=== PATIENT | female | born 1940 | race Caucasian/White ===

== ENCOUNTER 2017-02-07 13:53 | Outpatient (CLI) | payer MEDICARE, OTHER ==
--- NOTE | 2017-02-07 16:00 | Mammography Report ---
DIGITAL DIAGNOSTIC BILATERAL MAMMOGRAM: 02/07/2017 CLINICAL INDICATION: A 76-year-old with personal history of right breast cancer, status post lumpecto my and chemoradiation, palpable abnormality in her left breast. TECHNIQUE: Bilateral CC and MLO views, left true lateral view. A marker was placed at the site of pal pable abnormality identified by the patient. COMPARISON: 11/12/2015, 08/24/2014, 03/02/2014, 08/19/2013, 09/16/2012, 05/21/2012, 06/29/2011, 01/17, 06/29/2010, 12/28/2009, 10/25/2009. FINDINGS: The breasts again demonstrate scattered fibroglandular densities bilaterally. Postoperativ e and posttreatment changes in the right breast are stable. The palpable abnormality in the inner lef t breast again correlates with an oil cyst, stable from previous examinations. No new nodule, archite ctural distortion, or clustered microcalcifications are identified. IMPRESSION: BENIGN FINDINGS. RECOMMENDATION: ROUTINE ANNUAL SCREENING UNLESS OTHERWISE CLINICALLY INDICATED. BIRADS CATEGORY 2-BENIGN FINDINGS. STANDARD QUALIFYING STATEMENTS 1. This examination was reviewed with the aid of Computer-Aided Detection (CAD). 2. A negative or benign imaging report should not delay biopsy if clinically suspicious findings are present. Consider surgical consultation if warranted. More than 5% of cancers are not identified by oswaldo dial. 3. Dense breasts may obscure an underlying neoplasm. JOB #: [id number] EXT JOB #:[id number]
== END 2017-02-07 13:54 | disposition home or self-care (01) ==
LOC: DI 13:53
PROVIDERS: ATTEND Family Medicine
DX: N60.02 Solitary cyst of left breast (principal); Z85.3 Personal history of malignant neoplasm of breast
CPT/HCPCS: 77066

== ENCOUNTER 2017-11-22 09:33 | Outpatient (CLI) | payer MEDICARE, OTHER ==
[2017-11-22] MEDS ORDERED: REGADENOSON 0.4 MG/5 ML SYRINGE IVP ONE (10:29)
[2017-11-22] MEDS ORDERED: DIPYRIDAMOLE 50 MG/10 ML VIAL IVP ONE (11:00)
--- NOTE | 2017-11-22 15:46 | Nuclear Medicine Report ---
EXAM: SINGLE-ISOTOPE PHARMACOLOGICAL STRESS TEST WITH ADENOSINE. SINGLE-ISOTOPE AND SAME-DAY REST/STRESS MY OCARDIAL PERFUSION SCANS WITH TOMOGRAPHIC IMAGING, QUANTITATIVE ANALYSIS, WALL MOTION ANALYSIS AND CA LCULATION OF EJECTION FRACTION. EXAM DATE: 11/22/2017 02:41 PM. CLINICAL HISTORY: CHEST PAIN. COMPARISON: None. TECHNIQUE: Following the intravenous administration of 9.9 mCi of Tc-99m sestamibi, a rest myocardial perfusion scan was done with tomography. Motion correction was applied when appropriate. After a delay of several hours on the same day, a pharmacological stress was performed with the infus ion of 42 mg of dipyridamole. According to protocol, 39.8 mCi of Tc-99m sestamibi was injected for st ress myocardial perfusion scan. Stress myocardial perfusion was done with tomography without attenuat ion correction. Motion correction was applied when appropriate. Gated tomographic images were obtained for wall motion analysis and computation of left ventricular ejection fraction. FINDINGS: Perfusion images: Left ventricular chamber size is normal at rest and unchanged at stress. No convincing fixed perfusion deficits. No convincing reversible perfusion deficits. Gated images: No focal wall motion abnormality. The left ventricular ejection fraction is estimated at ADC% (normal > 50%). IMPRESSION: 1. No convincing reversible perfusion deficits to indicate stress-induced ischemia. 2. No convincing fixed perfusion deficits. 3. Left ventricular ejection fraction of 86% (normal > 50%). 4. No focal wall motion abnormalities. [facility] Referring Provider Line: [phone] SITE ID: [id number]
[2017-11-22 16:08] VITALS: BP 138/82
--- NOTE | 2017-11-22 19:53 | CARDIAC PROCEDURE NOTE ---
DATE OF SERVICE: 11/22/2017 Physician: SUYAPA Fernández PRIMARY CARE PHYSICIAN: Alphonse Ackerman MD. PROCEDURE: Pharmacologic cardiac stress test. PROCEDURE SYMPTOMS: Atypical chest pain. CARDIAC RISK FACTORS Include: 1. Age. 2. Diabetes. 3. Hypertension. PREVIOUS CARDIAC PROCEDURES: Adenosine pharmaceutical stress test on 07/22/2015 , with [address] depression. Significant symptoms from the adenosine itself. CLINICAL HISTORY: A 77-year-old female with asthma and COPD, and without known coronary artery disease. She does have a history of atrial tachycardia. She had no current symptoms. MEDICATIONS HELD: No medications held. No caffeine >24 hours. INITIAL RESTING VITAL SIGNS: BP 164/58, heart rate 81, height 61 inches, weight 155 pounds, BMI 31.43. PROCEDURE AND FINDINGS: Patient identity and date verified, consent signed. Pharmaceutical check. Blood pressure monitored at left wrist. Pharmaceutical stress testing was performed with Persantine 0.57 mg/kg over 4 minutes. The heart rate increased to 110 beats per minute from the infusion. Blood pressure response decreased to 138/82 during the stress procedure and then returned to baseline. The patient developed moderate infusion related symptoms, which included a tightness in the neck and head and left upper arm, which resolved partially spontaneous and partially with caffeine. The resting ECG demonstrated normal sinus rhythm with no ST segment or T-wave changes. A maximum ST-segment depression with stress was less than 0.5 mm and upsloping. There was no ectopy. The patient did not feel well for her repeat nuclear scan, complaining of feeling drowsy and having a headache. She had a snack and thus unlikely to have hypoglycemia. Recheck of VS and exam were normal. FINAL IMPRESSIONS 1. Negative electrocardiogram for ischemia in the setting of vasodilator stress. 2. Nondiagnostic stress test for angina. 3. Again, had prolonged symptoms of feeling slightly ill after procedure. 4. No ectopy. DISCUSSION AND RECOMMENDATIONS: Await myocardial perfusion report. TD: 11/22/2017 19:52 MTDD
== END 2017-11-22 09:34 | disposition home or self-care (01) ==
LOC: DI 09:33
PROVIDERS: ATTEND Family Medicine
DX: R07.89 Other chest pain (principal); E11.9 Type 2 diabetes mellitus without complications; I10 Essential (primary) hypertension; J44.9 Chronic obstructive pulmonary disease, unspecified
CPT/HCPCS: 78452; 93017; A9500; J1245; J2785; 93016; 93018

== ENCOUNTER 2018-05-03 12:51 | Outpatient (CLI) | payer MEDICARE, OTHER ==
--- NOTE | 2018-05-03 16:56 | Mammography Report ---
Reason: BREAST MASS, LEFT Procedure Date: 05/03/2018 Accession Number: [id number] / [id number] Procedure: [facility] - Diagnostic Dig Bilat CPT Code: FULL RESULT: EXAM: Diagnostic Dig Bilat DATE: 05/03/2018 1:54 PM CLINICAL HISTORY: 77-year-old female with personal history of breast cancer status post lumpectomy and chemoradiation to the right breast who presents with left breast pain for 4 to 5 months. TECHNIQUE: Bilateral CC and MLO views were obtained. COMPARISON: 02/07/2017, 11/12/2015, 08/24/2014, 03/02/2014 FINDINGS: The breasts demonstrate scattered fibroglandular densities bilaterally. Postsurgical and posttreatment changes are seen in the right breast. Typically benign coarse calcifications are seen in both breasts. No suspicious masses, clustered microcalcifications, or regions of architectural distortion are identified. There are no abnormal mammographic findings in the painful left breast. IMPRESSION: Benign findings RECOMMENDATION: Recommend routine annual Screening mammography unless otherwise clinically indicated. BIRADS CATEGORY 2: Benign findings STANDARD QUALIFYING STATEMENTS: 1. This examination was not reviewed with the aid of Computer-Aided Detection (CAD). 2. A negative or benign imaging report should not delay biopsy if clinically suspicious findings are present. Consider surgical consultation if warrented. More than 5% of cancers are not identified by imaging. 3. Dense breasts may obscure an underlying neoplasm.
== END 2018-05-03 12:52 | disposition home or self-care (01) ==
LOC: DI 12:51
PROVIDERS: ATTEND Family Medicine
DX: N63.20 Unspecified lump in the left breast, unspecified quadrant (principal); N64.4 Mastodynia
CPT/HCPCS: 77066

== ENCOUNTER 2018-12-06 08:00 | Outpatient (CLI) | payer MEDICARE, OTHER ==
[2018-12-06 18:23] LABS: BASOPHILS # (AUTO) 0.1 10^3/uL (0.0-0.1); BASOPHILS % (AUTO) 1.8 %; EOSINOPHILS # (AUTO) 0.2 10^3/uL (0.0-0.7); EOSINOPHILS % (AUTO) 2.9 %; HGB - HEMOGLOBIN 13.8 g/dL (12.0-16.0); LYMPHOCYTES # (AUTO) 1.8 10^3/uL (1.5-3.5); LYMPHOCYTES % (AUTO) 24.3 %; MEAN CORPUSCULAR HEMOGLOBIN 27.9 pg (27.0-31.0); MEAN CORPUSCULAR HGB CONC 32.3 g/dL (32.0-36.0); MEAN CORPUSCULAR VOLUME 86.2 fL (81.0-99.0); MEAN PLATELET VOLUME 8.7 fL (7.9-10.8); MONOCYTES # (AUTO) 0.7 10^3/uL (0.0-1.0); NEUTROPHILS # (AUTO) 4.5 10^3/uL (1.5-6.6); PLT - PLATELET COUNT 362 10^3/uL (130-450); RED BLOOD COUNT 4.97 10^6/uL (4.20-5.40); RED CELL DISTRIBUTION WIDTH 13.3 % (12.0-15.0); WHITE BLOOD COUNT 7.4 x10^3/uL (4.8-10.8)
== END 2018-12-06 23:59 | disposition home or self-care (01) ==
LOC: LAB.WCP 08:00
PROVIDERS: ATTEND Family Medicine
DX: I10 Essential (primary) hypertension (principal)
CPT/HCPCS: 36415; 85025

== ENCOUNTER 2020-07-11 11:58 | Outpatient (CLI) | payer MEDICARE, OTHER ==
[2020-07-11 12:31] LABS: BASOPHILS # (AUTO) 0.1 10^3/uL (0.0-0.1); BASOPHILS % (AUTO) 1.4 %; EOSINOPHILS # (AUTO) 0.3 10^3/uL (0.0-0.7); EOSINOPHILS % (AUTO) 2.6 %; HGB - HEMOGLOBIN 14.1 g/dL (12.0-16.0); LYMPHOCYTES # (AUTO) 2.4 10^3/uL (1.5-3.5); LYMPHOCYTES % (AUTO) 24.1 %; MEAN CORPUSCULAR HGB CONC 33.3 g/dL (32.0-36.0); MEAN CORPUSCULAR VOLUME 87.2 fL (81.0-99.0); MEAN PLATELET VOLUME 10.2 fL (7.9-10.8); MONOCYTES # (AUTO) 0.8 10^3/uL (0.0-1.0); NEUTROPHILS # (AUTO) 6.3 10^3/uL (1.5-6.6); NEUTROPHILS % (AUTO) 63.4 %; PLT - PLATELET COUNT 365 10^3/uL (130-450); RED BLOOD COUNT 4.86 10^6/uL (4.20-5.40); RED CELL DISTRIBUTION WIDTH 12.4 % (12.0-15.0); WHITE BLOOD COUNT 9.9 x10^3/uL (4.8-10.8)
[2020-07-11 12:54] LABS: ALBUMIN 4.5 g/dL (3.2-5.5); ALBUMIN/GLOBULIN RATIO 1.4 (1.0-2.2); ALKALINE PHOSPHATASE 61 IU/L (42-121); ALT ALANINE AMINOTRANSFERASE 24 IU/L (10-60); AST ASPARTATE AMINOTRANSFERASE 20 IU/L (10-42); BILIRUBIN,TOTAL 0.7 mg/dL (0.2-1.0); BUN - BLOOD UREA NITROGEN 24 mg/dL (6-20); CALCIUM 9.9 mg/dL (8.5-10.3); CARBON DIOXIDE - CO2 28 mmol/L (21-32); CHLORIDE 93 mmol/L (101-111); CHOL/HDL RATIO 7.9 (<4.4); CHOLESTEROL 268 mg/dL; GLUCOSE 137 mg/dL (70-100); HDL CHOLESTEROL 34 mg/dL; LDL CHOLESTEROL,CALCULATED 165 mg/dL; LDL/HDL RATIO 4.9 (<4.4); SODIUM 135 mmol/L (135-145); TOTAL PROTEIN 7.8 g/dL (6.7-8.2); VLDL CHOLESTEROL 69 mg/dL
[2020-07-11 13:21] LABS: CREATININE,URINE 21.2 mg/dL; MICROALBUMIN,URINE < 0.2 mg/dL (0-300.0)
[2020-07-11 18:43] LABS: HEMOGLOBIN A1c% 8.1 % (4.27-6.07)
== END 2020-07-11 11:59 | disposition home or self-care (01) ==
LOC: LAB 11:58
PROVIDERS: ATTEND Family Medicine
DX: E11.9 Type 2 diabetes mellitus without complications (principal)
CPT/HCPCS: 36415; 80053; 80061; 82043; 82570; 83036; 83721; 85025

== ENCOUNTER 2022-06-20 11:21 | Outpatient (CLI) | payer MEDICARE, OTHER ==
[2022-06-20 18:32] LABS: BASOPHILS # (AUTO) 0.1 10^3/uL (0.0-0.1); BASOPHILS % (AUTO) 1.5 %; EOSINOPHILS # (AUTO) 0.3 10^3/uL (0.0-0.7); EOSINOPHILS % (AUTO) 3.5 %; HCT - HEMATOCRIT 44.3 % (37.0-47.0); HGB - HEMOGLOBIN 14.1 g/dL (12.0-16.0); LYMPHOCYTES # (AUTO) 2.2 10^3/uL (1.5-3.5); LYMPHOCYTES % (AUTO) 28.1 %; MEAN CORPUSCULAR HEMOGLOBIN 27.9 pg (27.0-31.0); MEAN CORPUSCULAR HGB CONC 31.8 g/dL (32.0-36.0); MEAN CORPUSCULAR VOLUME 87.7 fL (81.0-99.0); MEAN PLATELET VOLUME 10.7 fL (7.9-10.8); MONOCYTES # (AUTO) 0.6 10^3/uL (0.0-1.0); MONOCYTES % (AUTO) 7.4 %; NEUTROPHILS # (AUTO) 4.6 10^3/uL (1.5-6.6); PLT - PLATELET COUNT 402 10^3/uL (130-450); RED BLOOD COUNT 5.05 10^6/uL (4.20-5.40); RED CELL DISTRIBUTION WIDTH 12.9 % (12.0-15.0); WHITE BLOOD COUNT 7.8 x10^3/uL (4.8-10.8)
[2022-06-20 18:53] LABS: ALBUMIN 4.6 g/dL (3.2-5.5); ALBUMIN/GLOBULIN RATIO 1.5 (1.0-2.2); ALKALINE PHOSPHATASE 63 IU/L (42-121); ALT ALANINE AMINOTRANSFERASE 18 IU/L (10-60); AST ASPARTATE AMINOTRANSFERASE 16 IU/L (10-42); BILIRUBIN,TOTAL 0.7 mg/dL (0.2-1.0); BUN - BLOOD UREA NITROGEN 24 mg/dL (6-20); CALCIUM 10.3 mg/dL (8.5-10.3); CARBON DIOXIDE - CO2 31 mmol/L (21-32); CHLORIDE 102 mmol/L (101-111); CHOL/HDL RATIO 7.7 (<4.4); CHOLESTEROL 277 mg/dL; CREATININE 1.2 mg/dL (0.4-1.0); GFR - MDRD 43 (>89); GLUCOSE 127 mg/dL (70-100); HDL CHOLESTEROL 36 mg/dL; LDL CHOLESTEROL,CALCULATED 195 mg/dL; LDL/HDL RATIO 5.4 (<4.4); POTASSIUM 3.9 mmol/L (3.5-5.0); SODIUM 142 mmol/L (135-145); TOTAL PROTEIN 7.7 g/dL (6.7-8.2); TRIGLYCERIDES 229 mg/dL; VLDL CHOLESTEROL 46 mg/dL
[2022-06-20 18:58] LABS: THYROID STIMULATING HORMONE 1.74 uIU/mL (0.34-5.60)
[2022-06-20 20:21] LABS: ESTIMATED AVERAGE GLUCOSE 171 mg/dL (70-100); HEMOGLOBIN A1c% 7.6 % (4.27-6.07)
== END 2022-06-20 11:22 | disposition home or self-care (01) ==
LOC: LAB.N 11:21
PROVIDERS: ATTEND Nurse Practitioner Family
DX: E11.22 Type 2 diabetes mellitus with diabetic chronic kidney disease (principal); I10 Essential (primary) hypertension
CPT/HCPCS: 36415; 80053; 80061; 83036; 83721; 84443; 85025